=== PATIENT | male | born 1960 | race Caucasian/White ===

== ENCOUNTER 2019-04-13 13:53 | Emergency (ER) | payer BC ==
[~2019-04-13] VITALS: Ht 172.7 cm; Wt 63.5 kg
--- NOTE | 2019-04-13 14:46 | PHYS DOC ---
Past History Past Medical History: No Pertinent History Past Surgical History: No Surgical History Alcohol Use: None Drug Use: None Adult General Chief Complaint Chief Complaint: SHOULDER INJURY HPI HPI Patient is a 58-year-old male who presented to ER today for evaluation of right shoulder pain off and on for 2 months. Patient works manual labor, had been doing a lot of heavy lifting. Patient complaints of right shoulder pain with certain movement of his right shoulder. Patient said lately he started having some right-sided neck pain at well. Patient denies any injury. Patient denies any weakness or numbness in his extremity. He denies any headache. Patient denies any fever, no chest pain, no trouble breathing, no weakness or numbness in his upper extremity. All other ROS is negative unless otherwise noted in HPI Review of Systems Review of Systems See above Allergies Allergies Allergies Coded Allergies Type Severity Reaction Last Updated Verified Penicillins Allergy Intermediate Rash 04/13/19 Yes Physical Exam Physical Exam See above Constitutional: Well developed, well nourished, no acute distress, non-toxic appearance. [] HENT: Normocephalic, atraumatic, bilateral external ears normal, oropharynx moist, no oral exudates, nose normal. [] Eyes: PERRLA, EOMI, conjunctiva normal, no discharge. [] Neck: Normal range of motion, no tenderness, supple, no stridor. [] Cardiovascular:Heart rate regular rhythm, no murmur [] Lungs & Thorax: Bilateral breath sounds clear to auscultation [] Abdomen: Bowel sounds normal, soft, no tenderness, no masses, no pulsatile mas ses. [] Skin: Warm, dry, no erythema, no rash. [] Back: No tenderness, no CVA tenderness. [] Extremities: No tenderness, no cyanosis, no clubbing, ROM intact, no edema. RIGHT SHOULDER WITH FULL RANGE OF MOTION, PATIENT STARTED HAVING PAIN WHEN HIS RIGHT SHOULDER RAISED TO 90 DEGREE. Neurologic: Alert and oriented X 3, normal motor function, normal sensory function, no focal deficits noted. [] Psychologic: Affect normal, judgement normal, mood normal. [] Current Patient Data Vital Signs Vital Signs Date Time Temp Pulse Resp B/P (MAP) Pulse Ox O2 Delivery O2 Flow Rate FiO2 04/13/19 14:40 98.4 63 18 98 EKG EKG [] Radiology/Procedures Radiology/Procedures [][address] [address] IMAGING REPORT Signed PATIENT: RAMANA MANRIQUEZ ACCOUNT: [id number] : 1960 LOCATION: ER AGE: 58 SEX: M EXAM STATUS: REG ER ORD. PHYSICIAN: ELPIDIO BORGES DO REASON: RIGHT SHOULDER PAIN FOR 2 MONTHS PROCEDURE: SHOULDER 2+V RIGHT Examination: 2 views of the right shoulder HISTORY: History of right shoulder pain for 2 months COMPARISON: None available FINDINGS: The humerus head is within the glenoid. There is no acute fracture or dislocation identified. IMPRESSION: No acute osseous findings. Electronically signed by: Harrison Almonte MD (04/13/2019 3:02 PM) [id number] DICTATED AND SIGNED BY: HARRISON ALMONTE MD DATE: 04/13/19 1502 CC: EPLIDIO BORGES DO; JOSÉ MIGUEL LORENZANA MD ~ Course & Med Decision Making Course & Med Decision Making Pertinent Labs and Imaging studies reviewed. (See chart for details) [] Dragon Disclaimer Dragon Disclaimer This electronic medical record was generated, in whole or in part, using a voice recognition dictation system. Departure Departure: Impression: Primary Impression: Right shoulder pain Disposition: 01 HOME, SELF-CARE Condition: STABLE Referrals: JOSÉ MIGUEL LORENZANA MD (PCP) PLEASE FOLLOW UP WITH YOUR DOCTOR FOR OUTPATIENT EVALUATION WITH MRI OF YOUR RIGHT SHOULDER Patient Instructions: Shoulder Pain Scripts Prednisone (PREDNISONE) 20 Mg Tablet 1 TAB PO DAILY for ARTHRITIS for 10 Days, #10 TAB Prov: ELPIDIO BORGES DO 04/13/19 Naproxen Sodium (ANAPROX DS) 550 Mg Tablet 1 TAB PO PRN BID PRN for arthritis for 10 Days, #20 TAB 0 Refills Prov: ELPIDIO BORGES DO 04/13/19 ELPIDIO BORGES DO Apr 13, 2019 14:46
[2019-04-13] MEDS ORDERED: KETOROLAC 60 MG/2 ML VIAL. IM ONE (15:00)
[2019-04-13] MEDS ORDERED: methylPREDNISolone SOD SUCC PF 125 MG/2 ML VIAL. IM ONE (15:00)
--- NOTE | 2019-04-13 15:05 | RAD ---
Examination: 2 views of the right shoulder HISTORY: History of right shoulder pain for 2 months COMPARISON: None available FINDINGS: The humerus head is within the glenoid. There is no acute fracture or dislocation identified. IMPRESSION: No acute osseous findings. Electronically signed by: Harrison Almonte MD (04/13/2019 3:02 PM) [id number]
[2019-04-13] MEDS ORDERED: PRED20TA PO (15:27)
[2019-04-13] MEDS ORDERED: NAPR-682 PO (15:27)
[2019-04-13 15:43] VITALS: BP 138/62
== END 2019-04-13 15:44 | disposition home or self-care (01) ==
LOC: ER 13:53
DX: M25.511 Pain in right shoulder (principal); M54.2 Cervicalgia; Z88.0 Allergy status to penicillin
CPT/HCPCS: 73030; 96372; 99284; J1885; J2930